=== PATIENT | female | born 1975 | race Caucasian/White ===

== ENCOUNTER 2024-02-19 18:45 | Emergency (ER) | payer BC, SELFPAY ==
[2024-02-19 18:46] VITALS: BMI 38.4
[2024-02-19 18:55] VITALS: BP 140/86; PULSE 97; RESP 18; TEMP 36.3; O2SAT 96
--- NOTE | 2024-02-19 19:06 | PD.EDRME ---
Rapid Medical Screening Exam RME Arrival date/time: 02/19/24 18:45 49-year-old female with past medical history of hyperlipidemia, diabetes, and hypertension presents emergency department complaining of rash to upper chest and neck that is been intermittent for 1 week. Patient reports recently completed steroids this past Monday which had initially cleared rash and returned yesterday. Chief Complaint: Allergic Reaction Time Seen by Provider: 02/19/24 18:56 Vital signs: Vital Signs Temperature 97.3 F 02/19/24 18:55 Pulse Rate 97 02/19/24 18:55 Respiratory Rate 18 02/19/24 18:55 Blood Pressure 140/86 H 02/19/24 18:55 Pulse Oximetry (%) 96 02/19/24 18:55 Oxygen Delivery Method Room Air 02/19/24 18:55 Vital signs reviewed by provider: Yes
[2024-02-19] MEDS: DEXAMETHASONE SOD PHOS INJ 10 MG/ML VIAL IM (19:08)
[2024-02-19] MEDS: DiphenhydrAMINE 25 MG CAPSULE 50 MG PO (19:09)
[2024-02-19] MEDS: FAMOTIDINE 20 MG TABLET 40 MG PO (19:09)
--- NOTE | 2024-02-19 20:47 | PD.EDALLER ---
ED Allergic Reaction RME/HPI General Chief complaint: Allergic Reaction Stated complaint: ALLERGIC REACTION X1 WEEK; TONGUE NUMB@[id number] Time Seen by Provider: 02/19/24 18:56 Source: patient Arrival date/time: 02/19/24 18:45 49-year-old female with past medical history of hyperlipidemia, diabetes, and hypertension presents emergency department complaining of rash to upper chest and neck that is been intermittent for 1 week. Patient reports recently completed steroids this past Monday which had initially cleared rash and returned yesterday. Patient denies any new detergents, lotions, medication, or recent exposure to chemicals. Mode of arrival: ambulatory Limitations: no limitations RME / HPI RME / HPI narrative: 02/19/24 18:45 49-year-old female with past medical history of hyperlipidemia, diabetes, and hypertension presents emergency department complaining of rash to upper chest and neck that is been intermittent for 1 week. Patient reports recently completed steroids this past Monday which had initially cleared rash and returned yesterday. Related Data Home Medications ?Medication ?Instructions ?Recorded ?Confirmed aspirin 81 mg chewable tablet 81 mg PO QDAY 06/26/19 06/26/19 (Aspirin Childrens) atorvastatin 20 mg tablet 20 mg PO HS 06/26/19 06/26/19 escitalopram oxalate 20 mg tablet 20 mg PO DAILY 06/26/19 06/26/19 (Lexapro) lisinopril 5 mg tablet 5 mg PO DAILY 06/26/19 06/26/19 Previous Rx's ?Medication ?Instructions ?Recorded loratadine 10 mg capsule 10 mg PO QDAY PRN allergy symptoms 05/22/20 #30 caps prednisone 20 mg tablet 40 mg PO QDAY 3 days #6 tabs 02/19/24 Allergies Allergy/AdvReac Type Severity Reaction Status Date / Time latex Allergy Severe Anaphylaxis Verified 02/19/24 18:49 swain Allergy Intermediate Hives Verified 02/19/24 18:49 watermelon Allergy Intermediate Hives Verified 02/19/24 18:49 Review of Systems Review of Systems Systems Reviewed: All systems reviewed, normal except as documented Constitutional Constitutional: Reports system reviewed and no additional complaints, except as documented, Denies body ache(s), Denies chills and Denies fever(s) Eyes Eyes: Reports system reviewed and no additional complaints, except as documented and Denies change in vision ENT Ears, Nose, Mouth, and Throat: Reports system reviewed and no additional complaints, except as documented, Denies disequilibrium, Denies dizziness, Denies sore throat and Denies vertigo Cardiovascular Cardiovascular: Reports system reviewed and no additional complaints, except as documented, Denies chest pain and Denies dyspnea Respiratory Respiratory: Reports system reviewed and no additional complaints, except as documented, Denies chest congestion, Denies cough and Denies dyspnea Gastrointestinal Gastrointestinal: Reports system reviewed and no additional complaints, except as documented, Denies abdominal pain, Denies nausea and Denies vomiting Musculoskeletal Musculoskeletal: Reports system reviewed and no additional complaints, except as documented, Denies abnormal gait and Denies arthralgias Integumentary/Breasts Skin/Breast: Reports system reviewed and no additional complaints, except as documented, Denies erythema, Reports rash and Denies wounds Neurologic Neurologic: Reports system reviewed and no additional complaints, except as documented, Denies abnormal gait, Denies disequilibrium, Denies dizziness and Denies vertigo Past Medical History Past Medical History CARDIAC: Positive Hypercholesterolemia, Deep Vein Thrombosis and Hypertension; Negative Congestive Heart Failure RESPIRATORY: Positive Bronchitis; Negative Chronic Obstructive Pulmonary Disease (COPD) GASTROINTESTINAL: Positive Gastroesophageal Reflux Disease GENITOURINARY: Positive Kidney Stones; Negative Renal Disease MUSCULOSKELETAL: Positive Arthritis and Carpal Tunnel Syndrome ENDOCRINE: Negative Diabetes Mellitus Type 1 or Diabetes Mellitus Type 2 PSYCHO/SOCIAL: Positive Depression and Anxiety OTHER HISTORY: Positive Hospitalization and Chicken Pox Family History FAMILY HISTORY: Positive Family Psychiatric Problems, Family Respiratory Disorders, Family Cardiac Disorders, Family Gastrointestinal Problems and Family Cancer Social History SMOKING STATUS: Never smoker ED Exam General Limitations: Present no limitations General appearance: Present alert and in no apparent distress Head Head exam: Present atraumatic Eye Eye exam: Present normal appearance, PERRL and EOMI ENT ENT exam: Present normal exam, normal oropharynx and mucous membranes moist Neck Neck exam: Present normal inspection, full ROM and trachea midline Chest Chest inspection: Present normal inspection and symmetric chest wall rise Respiratory Respiratory exam: Present normal lung sounds bilaterally Cardiovascular Cardiovascular exam: Present regular rate, normal rhythm and normal heart sounds Abdominal Exam Abdominal exam: Present soft and normal bowel sounds Extremities Exam Extremities exam: Present normal inspection and full ROM Back Exam Back exam: Present normal inspection and full ROM Neurological Exam Neurological exam: Present alert, oriented X3 and CN II-XII intact Psychiatric Psychiatric exam: Present normal affect and normal mood Skin Skin exam: Present warm, dry, intact and rash Expanded Skin Exam Type of lesion: Present rash Distribution: Present generalized, neck and chest Description: Present macular and urticarial Body image: 1. Reddened macular rash Course Quality Measures none Orders Category Date Time Status Dexamethasone Inj [Decadron Inj] Med 02/19/24 19:05 Discontinued 10 mg IM X1 ONE DiphenhydrAMINE [Benadryl] Med 02/19/24 19:05 Discontinued 50 mg PO X1 ONE Famotidine [Pepcid] Med 02/19/24 19:05 Discontinued 40 mg PO X1 ONE Vital Signs Vital signs: Vital Signs Temperature 97.3 F 02/19/24 18:55 Pulse Rate 97 02/19/24 18:55 Respiratory Rate 18 02/19/24 18:55 Blood Pressure 140/86 H 02/19/24 18:55 Pulse Oximetry (%) 96 02/19/24 18:55 Oxygen Delivery Method Room Air 02/19/24 18:55 96% room air within normal limits Allergic Reaction MDM Narrative MDM Narrative:: 49-year-old female with past medical history of hyperlipidemia, diabetes, and hypertension presents emergency department complaining of rash to upper chest and neck that is been intermittent for 1 week. Patient reports recently completed steroids this past Monday which had initially cleared rash and returned yesterday. Patient denies any new detergents, lotions, medication, or recent exposure to chemicals. Patient appears nontoxic and is hemodynamically stable. No adventitious lung sounds on auscultation. Patient not appear to be in any respiratory distress and was able to visualize oropharynx without any edema to tongue. Patient given IM dexamethasone head oral with a history with significant improvement in symptoms and then rash. Patient discharged and instructed to have close follow-up with primary care provider and return to emergency department for any worsening symptoms or as needed. Patient data External records reviewed:: [facility] previous records Clinical information provided by:: patient Social determinants that could affect healthcare access:: none Patient has the following chronic illnesses:: See chart How is presenting disease/condition affected by chronic disease/condition?: uneffected by Evaluation data The following diagnostics were reviewed and interpreted by me:: other (specify) (Not applicable) Lab and/or radiology exams considered but not ordered:: Not applicable Interpretation Summary: Not applicable Medications / Prescriptions Medications or Prescriptions considered but not ordered:: Ordered Medication administrations:: Medication Administration History Discontinued Medications Dexamethasone Sodium Phosphate (Dexamethasone Sod Phos Inj 10 Mg/Ml Vial) 10 mg IM X1 ONE Stop: 02/19/24 19:06 Last Admin: 02/19/24 19:08 Dose: 10 mg Documented By: OA Diphenhydramine HCl (Diphenhydramine 25 Mg Capsule) 50 mg PO X1 ONE Stop: 02/19/24 19:06 Last Admin: 02/19/24 19:09 Dose: 50 mg Documented By: OA Famotidine (Famotidine 20 Mg Tablet) 40 mg PO X1 ONE Stop: 02/19/24 19:06 Last Admin: 02/19/24 19:09 Dose: 40 mg Documented By: OA Given Consultations Consultation(s) initiated? (list below): No Diagnosis Differential Diagnosis allergic reaction: allergic reaction, angioedema, contact dermatitis, adverse reaction to drug, viral enanthem and urticaria Most likely diagnosis given after review of the tests above:: Allergic reaction Admission Indicated Admission indicated?: not indicated Admission Request Was there a request for admission?: No Disposition Plan Disposition Plan: Discharge Discharge Attestation Discharge Attestation: The patient and all family members were given an opportunity to ask questions and understood the discharge instructions. Discharge instructions specifically effects, indications for sooner follow up or return to the emergency department, and the expected course of current diagnosis. Patient condition: Stable Discharge Plan Plan Patient Disposition: HOME (Self Care) Disposition Comment: Stable Prescriptions/Referrals Prescriptions/Med Rec: New prednisone 20 mg tablet 40 mg PO QDAY 3 Days Qty: 6 0RF Taper: Prednisone Taper 20 mg DAILY for 2 Days and 0 Hour 10 mg DAILY for 2 Days and 0 Hour 5 mg DAILY for 7 Days and 0 Hour No Action atorvastatin 20 mg Tablet 20 mg PO HS escitalopram oxalate [Lexapro] 20 mg Tablet 20 mg PO DAILY aspirin [Aspirin Childrens] 81 mg Tablet,Chewable 81 mg PO QDAY lisinopril 5 mg Tablet 5 mg PO DAILY loratadine 10 mg capsule 10 mg PO QDAY PRN (Reason: allergy symptoms) Qty: 30 0RF Problem List Clinical Impression: Allergic reaction Patient/Caregiver Discharge Instructions Discharge Activity: activity as tolerated Education Materials: ED Anaphylaxis, ED Allerg React Other General Ch Additional Instructions: Take medication as prescribed. Close follow-up with primary care provider in 24 to 48 hours. Return immediately to emergency department for any worsening symptoms or as needed. Print Language: Maori Stand Alone Forms: Kelli Dos Santos Info., Patient Portal Info Letter PA/PRODUCT/INDUSTRY CONSULTANT Supervising Physician PA/PRODUCT/INDUSTRY CONSULTANT Supervising Physician: Dr. Griggs
== END 2024-02-19 21:08 | disposition home or self-care (01) ==
PROVIDERS: Emergency Provider Emergency Medicine; PCP Family Medicine
DX: R21 Rash and other nonspecific skin eruption (principal)
CPT/HCPCS: 96372; 99283; J1100; A9270

== ENCOUNTER → 2024-06-28 | Outpatient (CLI) | payer BC, SELFPAY ==
[2024-06-28 10:32] LABS: Basophils # (Auto) 0.1 Thou/mm3 (0.0-0.2); Basophils % (Auto) 1 % (0-2.5); Eosinophils # (Auto) 0.2 Thou/mm3 (0.0-0.5); Eosinophils % (Auto) 3 % (0-10); Hematocrit 43.5 % (36.0-46.0); Hemoglobin 14.7 g/dL (12.0-16.0); Immature Granulocytes % (Auto) 1 % (0-0); Immature Granulocytes Auto 0.04 Thou/mm3 (0.00-0.00); Lymphocytes % (Auto) 24 % (10-50); Mean Corpuscular HGB Conc 33.8 g/dl (31.0-37.0); Mean Corpuscular Hemoglobin 31.5 pg (25.0-35.0); Mean Corpuscular Volume 93 fL (80-100); Monocytes # (Auto) 0.6 Thou/mm3 (0.0-0.8); Monocytes % (Auto) 7 % (0-12); Neutrophils # (Auto) 5.5 Thou/mm3 (1.8-7.7); Neutrophils % (Auto) 65 % (37-80); Nucleated Red Blood Cell % 0 /100 WBC (0); Platelet Count 256 Thou/mm3 (140-440); Red Blood Count 4.67 Miln/mm3 (4.00-5.20); White Blood Count 8.4 Thou/mm3 (3.6-11.0)
[2024-06-28 10:47] LABS: Glucose Estimated Average 160 mg/dL (80-131); Hemoglobin A1C 7.2 % Hgb (4.8-6.0)
[2024-06-28 10:50] LABS: Collection Type, Urine Clean Catch
[2024-06-28 11:04] LABS: Alanine Aminotransferase 27 U/L (10-49); Albumin, Serum 4.4 gm/dL (3.5-5.0); Albumin/Globulin Ratio 1.5 (1.2-2.2); Alkaline Phosphatase 159 U/L (46-116); Anion Gap 8 (7-16); Aspartate Amino Transferase 23 U/L (0-34); BUN/Creatinine Ratio 18 Ratio (12-20); Bilirubin,Total 0.7 mg/dL (0.3-1.2); Blood Urea Nitrogen 14 mg/dL (9-23); Calcium 9.7 mg/dL (8.3-10.6); Calcium (Corrected) 9.7 mg/dL (8.5-10.1); Carbon Dioxide 26.8 mMol/L (20.0-31.0); Chloride 108 mMol/L (98-107); Creatinine (Component) 0.8 mg/dL (0.6-1.3); Globulin 2.9 gm/dL (2.3-3.5); Glucose 169 mg/dL (74-106); Osmolality,Calculated 289 (275-295); Potassium 4.4 mMol/L (3.4-5.1); Sodium 143 mMol/L (136-145); Thyroid Stimulating Hormone 1.99 uIU/mL (0.55-4.78); Total Protein 7.3 gm/dL (5.7-8.2); eGFR > 60 See Note
[2024-06-28 11:18] LABS: Cardiac Risk Estimate 3.4 RATIO (3.7-5.6); Cholesterol 192 mg/dL (132-200); HDL Cholesterol 57 mg/dL (40-60); LDL Cholesterol,Calculated 117 mg/dL (0-130); Triglycerides 90 mg/dL (30-150)
[2024-06-28 11:38] LABS: Bilirubin,Urine Negative (Negative); Blood,Urine Negative (Negative); Clarity,Urine Clear (Clear/Hazy); Color,Urine Yellow (Lt Yel-Yel); Culture Indicated,Urine Not Indicated; Glucose, Urine Negative (Negative); Ketones,Urine Negative (Negative); Leukocyte Esterase,Urine Positive (Negative); Nitrite,Urine Negative (Negative); PH,Urine 6.5 (5.0-7.0); Protein,Urine Trace (Neg - Trace); RBC,Urine 2 /hpf (0-3); Specific Gravity,Urine 1.026 (1.001-1.035); Squamous Epithelial Cell,Urine 2 /hpf (0-5); Urobilinogen,Urine Negative mg/dL (0.0-1.0); WBC,Urine 3 /hpf (0-5)
[2024-06-28 11:44] LABS: Creatinine MALB Rnd Ur 206 mg/dL (30-125); Microalbumin Creat Ratio 2 mg/gCrea (<30); Microalbumin, Random Urine 5 mg/L (0-300)
[2024-06-28 12:09] LABS: Vitamin D 25 Hydroxy Total 59.7 ng/mL (7.3-40.2)
== END | disposition home or self-care (01) ==
PROVIDERS: PCP Registered Nurse; Referring Provider Registered Nurse; Visit Provider Registered Nurse
DX: Z00.00 Encounter for general adult medical examination without abnormal findings (principal); E11.65 Type 2 diabetes mellitus with hyperglycemia; E78.2 Mixed hyperlipidemia
CPT/HCPCS: 36415; 80053; 80061; 81001; 82043; 82306; 82570; 83036; 84443; 85025

== ENCOUNTER → 2024-09-05 | Outpatient (CLI) | payer BC, SELFPAY ==
--- NOTE | 2024-09-05 11:15 | XR_ITS ---
Examination: Screening digital mammography, bilateral Computer aided detection 3-D breast Tomosynthesis, bilateral Date and time of exam: 09/05/2024 11:09 AM Compared to mammograms dating to May 20, 2019. Indication: Screening Technique: Nonmagnified MLO, CC views of the breasts to been obtained, reconstructed from 3-D Tomosynthesis images. R2 computer aided detection program utilized for evaluation of suspicious masses and/or abnormal calcifications. 3-D Tomosynthesis images obtained. Findings: Scattered areas of fibroglandular density. Benign calcifications. 4 mm focal asymmetry inner left breast CC view, 3.4 cm from the nipple IMPRESSION: BI-RADS Category 0: Incomplete: Need additional imaging evaluation 4 mm focal asymmetry inner left breast CC view, 3.4 cm from the nipple, recommend follow-up spot tomographic CC view, spot tomographic MLO view upper left breast, left breast sonography to complete the workup
== END | disposition home or self-care (01) ==
LOC: CDIM 11:01
PROVIDERS: PCP Registered Nurse; Referring Provider Registered Nurse; Visit Provider Registered Nurse
DX: Z12.31 Encounter for screening mammogram for malignant neoplasm of breast (principal); N64.89 Other specified disorders of breast
CPT/HCPCS: 77063; 77067

== ENCOUNTER → 2024-09-27 | Outpatient (CLI) | payer BC, SELFPAY ==
--- NOTE | 2024-09-27 08:15 | XR_ITS ---
Examination: Diagnostic digital mammography, unilateral, LEFT Computer aided detection 3-D breast Tomosynthesis, unilateral Date and time of exam: September 27, 2024 0844 hours INDICATIONS: Mammogram September 05, thousand 25 4 mm focal asymmetry inner left breast CC view Technique: Nonmagnified MLO, CC views of the left breast have been obtained, reconstructed from 3-D Tomosynthesis images. R2 computer aided detection program utilized for evaluation of suspicious masses and/or abnormal calcifications. 3-D Tomosynthesis images obtained. Findings: Scattered areas of fibroglandular density No suspicious solid nodules depicted Impression: BI-RADS category 2: Benign findings Return to yearly follow-up mammography
--- NOTE | 2024-09-27 08:30 | XR_ITS ---
Examination: Breast ultrasound, unilateral, left complete Date and time of exam: September 27, 2024 0832 hours INDICATIONS: Mammogram September 05, 2024 4 mm focal asymmetry inner left breast 3.4 cm from the nipple, left breast pain 3 months, family history breast cancer Technique: Real-time ward scale ultrasonographic imaging performed left breast including all 4 quadrants as well as nipple retroareolar and axillary region. Findings: 11:00 cyst 2 x 3 mm No solid nodules Left axillary lymph nodes with possible mild distortion of central architecture, measuring 3.2 cm, 2.4 cm IMPRESSION: BI-RADS Category 3: Probably benign findings Recommend 3 month left breast axillary sonography follow-up to document stability of left axillary lymph nodes
== END | disposition home or self-care (01) ==
LOC: CDIM 08:21
PROVIDERS: PCP Family Medicine; Referring Provider Registered Nurse; Visit Provider Registered Nurse
DX: R92.322 Mammographic fibroglandular density, left breast (principal); Z80.3 Family history of malignant neoplasm of breast
CPT/HCPCS: 76641; 77061; 77065; G0279

== ENCOUNTER → 2025-01-23 | Outpatient (CLI) | payer BC, SELFPAY ==
[2025-01-23 17:21] LABS: Glucose Estimated Average 140 mg/dL (80-131); Hemoglobin A1C 6.5 % Hgb (4.8-6.0)
[2025-01-23 17:22] LABS: Alanine Aminotransferase 35 U/L (10-49); Albumin, Serum 4.6 gm/dL (3.5-5.0); Albumin/Globulin Ratio 2.1 (1.2-2.2); Alkaline Phosphatase 141 U/L (46-116); Anion Gap 7 (7-16); Aspartate Amino Transferase 29 U/L (0-34); BUN/Creatinine Ratio 16 Ratio (12-20); Bilirubin,Total 0.5 mg/dL (0.3-1.2); Blood Urea Nitrogen 13 mg/dL (9-23); Calcium 9.8 mg/dL (8.3-10.6); Calcium (Corrected) 9.8 mg/dL (8.5-10.1); Carbon Dioxide 30.1 mMol/L (20.0-31.0); Chloride 105 mMol/L (98-107); Creatinine (Component) 0.8 mg/dL (0.6-1.3); Globulin 2.2 gm/dL (2.3-3.5); Glucose 114 mg/dL (74-106); Osmolality,Calculated 284 (275-295); Potassium 4.0 mMol/L (3.4-5.1); Sodium 142 mMol/L (136-145); Total Protein 6.8 gm/dL (5.7-8.2); eGFR > 60 See Note
[2025-01-28 06:25] LABS: Fecal Globin Result NOT DETECTED (NOT DETECTED)
== END | disposition home or self-care (01) ==
LOC: COPL 15:59
PROVIDERS: PCP Registered Nurse; Referring Provider Registered Nurse; Visit Provider Registered Nurse
DX: E11.65 Type 2 diabetes mellitus with hyperglycemia (principal); Z12.11 Encounter for screening for malignant neoplasm of colon
CPT/HCPCS: 36415; 80053; 82274; 83036; G0328